=== PATIENT | female | born 1985 | race Caucasian/White ===

== ENCOUNTER → 2017-01-31 | Outpatient (CLI) | payer OTHER ==
--- NOTE | 2017-01-31 10:40 | US ---
EXAMINATION TYPE: US abdomen complete DATE OF EXAM: 01/31/2017 COMPARISON: NONE CLINICAL HISTORY: R10.84 Abdominal Pain. EXAM MEASUREMENTS: Liver Length: 16.8 cm Gallbladder Wall: 0.3 cm CBD: 0.3 cm Spleen: 13.0 cm Right Kidney: 10.6 x 5.1 x 5.1 cm Left Kidney: 11.3 x 5.0 x 5.2 cm Morbidly obese patient with extensive midline bowel gas, technically difficult and limited study. Pancreas: Obscured by bowel gas Liver: Increased attenuation, decreased visualization of vessels suggestive of fatty infiltrate, upp er limits of normal is size Gallbladder: wnl Evidence for sonographic Pulido's sign: no CBD: very limited visualization Spleen: wnl Right Kidney: Inferior pole obscured by overlying bowel gas Left Kidney: Inferior pole obscured by overlying bowel gas Upper IVC: wnl Abd Aorta: Mostly obscured by overlying bowel gas, only mid portions visualized The pancreas is not identified. The liver is upper limits of normal in size with increased attenuation. It may be fatty infiltrated. The gallbladder is normal without evidence of cholelithiasis. The gallbladder wall measures 3 mm. The distal common hepatic duct measures 3 mm. Limited views of both kidneys are normal. The spleen is upper limits of normal in size. Limited views of the aorta and IVC are unremarkable. IMPRESSION: 1. Borderline hepatosplenomegaly. 2. Probable fatty infiltration of the liver.
== END | disposition home or self-care (01) ==
LOC: RADUSWWP 09:39
PROVIDERS: ATTEND Family Medicine
DX: R16.2 Hepatomegaly with splenomegaly, not elsewhere classified (principal); R10.84 Generalized abdominal pain
CPT/HCPCS: 76700

== ENCOUNTER → 2017-02-15 | Outpatient (CLI) | payer OTHER ==
--- NOTE | 2017-02-15 15:18 | NM ---
EXAMINATION TYPE: NM hepatobiliary w EF DATE OF EXAM: 02/15/2017 COMPARISON: Ultrasound abdomen 01/31/2017 HISTORY: Generalized abdomen pain, R 10.84 TECHNIQUE: After the intravenous administration of 5.05 mCi Tc 99m Mebrofenin hepatobiliary scintigra phy is performed. Immediate images post injection. FINDINGS: There is satisfactory initial accumulation of tracer by the liver. The gallbladder is visualized wit hin 36 minutes. The small bowel activity is noted within 6 minutes. At one hour 8 ounces of oral en sure plus is given to mimic CCK and gallbladder ejection fraction is calculated at 85 %. Therefore th ere is no scintigraphic evidence of cystic or common bile duct obstruction to suggest acute cholecyst itis. IMPRESSION: Gallbladder ejection fraction is 85%.
== END | disposition home or self-care (01) ==
LOC: RADNMMAIN 12:48
PROVIDERS: ATTEND Surgery
DX: R10.84 Generalized abdominal pain (principal)
CPT/HCPCS: 78226; A9537